=== PATIENT | female | born 1990 | race Two or more races ===

== ENCOUNTER 2017-03-12 10:10 | Inpatient (IN) | payer BC ==
[~2017-03-12] VITALS: Ht 167.6 cm; Wt 68.4 kg
--- NOTE | ~2017-03-12 | OR ---
PATIENT'S NAME: ANGELICA CUBA [facility] AGE: 26 Y [address] ROOM: [place] [id number] LOCATION: [facility] ADMIT DATE: 03/12/2017 OR/Procedure Report DISCHARGE DATE: FAMILY PHYSICIAN: PHYSICIAN, NO ATTENDING PHYSICIAN: SAGAR VELASQUEZ SURGEON: Sagar Velasquez MD FASHION BUYER: DATE OF PROCEDURE: 03/12/2017 PREOPERATIVE DIAGNOSIS: Intrauterine at 39 weeks 6 days. POSTOPERATIVE DIAGNOSIS: Intrauterine at 39 weeks 6 days, active labor. PROCEDURE PERFORMED: Spontaneous vaginal delivery over intact perineum. ANESTHESIA: Epidural. FINDINGS: Viable male infant with score of 8 and 9 and weight of 8 pounds 2 ounces. Placenta intact with 3-vessel cord. No cervical, vaginal, or perineal lacerations. COMPLICATIONS: None. ESTIMATED BLOOD LOSS: 250 mL. INDICATIONS: The patient is a 26-year-old G3, P2-0-0-2 with intrauterine at 39 weeks 0 days, who presented to clinic today with vaginal bleeding and contractions every 8 minutes. She was found to be 2 cm dilated. She desired induction of labor. She was sent over to Labor and Delivery, was found to be 4 cm dilated. AROM was attempted to be performed. Normal fluid returned. The patient then was started on Pitocin. She got her epidural and was found to be 6 cm and had spontaneous rupture of membranes. She then progressed to complete and started maternal expulsive efforts. DESCRIPTION OF PROCEDURE: The patient was placed in dorsal lithotomy. She was prepped and draped in the usual fashion. With maternal expulsive efforts, the head was delivered in the JENNIFER position followed by the remainder of the fetus. The new born was placed on the mother's abdomen. The cord was clamped and cut. The placenta then delivered spontaneously intact. Cord blood was obtained prior to this. The cervix, vagina, and perineum were inspected and no lacerations were noted. Instrument, sponge, and needle counts were correct at the conclusion of the case. DISPOSITION: Mom stable. Baby in room with mom. PATIENT'S NAME: ANGELICA CUBA [facility] AGE: 26 Y [address] ROOM: [place] [address] LOCATION: [facility] ADMIT DATE: 03/12/2017 OR/Procedure Report DISCHARGE DATE: FAMILY PHYSICIAN: EMILY MORROW ATTENDING PHYSICIAN: SAGAR VELASQUEZ MD LUZ MARIA BOBO/alicia /[id number] d: 03/13/17 0130 t: 03/20/17 1819, OPERATIVE SUMMARY
[~2017-03-12 10:10] MED LIST: LEVOTHROID (S150 MCG PO; PRENATAL 1+1)(P1 TAB PO
[2017-03-12 11:18] LABS: BASOPHIL % 0.2 %; EOSINOPHIL % 0.4 %; HEMATOCRIT 33.6 % (33.0-46.0); HEMOGLOBIN 11.2 g/dL (11.0-15.0); IMMATURE GRANULOCYTE # 0.1 K/uL (0.0-0.3); IMMATURE GRANULOCYTE % 0.5 %; LYMPHOCYTE # 1.9 K/uL (0.8-4.0); LYMPHOCYTE % 20.8 %; MCH 28.4 pg (27.0-34.0); MCHC 33.3 gm/dL (32.0-36.5); MCV 85.1 fl (83.0-98.0); MONOCYTE # 0.6 K/uL (0.0-1.0); MONOCYTE % 6.9 %; MPV 11.3 fl (9.4-12.4); NEUTROPHIL # (ANC) 6.6 K/uL (1.8-7.8); NEUTROPHIL % 71.2 %; NRBC % 0 /100WBC (0-0.00); PLATELET COUNT 169 K/uL (150-450); RBC 3.95 M/uL (3.50-5.00); WBC 9.3 K/uL (4.0-11.0)
[2017-03-13 04:26] LABS: BASOPHIL % 0.4 %; EOSINOPHIL # 0.1 K/uL (0.0-0.5); EOSINOPHIL % 0.8 %; HEMATOCRIT 30.7 % (33.0-46.0); HEMOGLOBIN 10.2 g/dL (11.0-15.0); IMMATURE GRANULOCYTE # 0.1 K/uL (0.0-0.3); IMMATURE GRANULOCYTE % 0.6 %; LYMPHOCYTE # 2.2 K/uL (0.8-4.0); LYMPHOCYTE % 24.4 %; MCH 27.9 pg (27.0-34.0); MCHC 33.2 gm/dL (32.0-36.5); MCV 84.1 fl (83.0-98.0); MONOCYTE # 0.7 K/uL (0.0-1.0); MONOCYTE % 7.8 %; MPV 10.9 fl (9.4-12.4); NRBC % 0 /100WBC (0-0.00); PLATELET COUNT 147 K/uL (150-450); RBC 3.65 M/uL (3.50-5.00); RDW-CV 13.2 % (11.9-14.6); WBC 9.1 K/uL (4.0-11.0)
--- NOTE | 2017-03-13 06:19 | NUR ---
VSS, fundus 1 down, firm, small flow, Motrin last at 1936, Perc last at 0004, Synthroid due at 0700
[2017-03-14] MEDS ORDERED: SURFAK240 MG PO (11:07)
[2017-03-14] MEDS ORDERED: MOTRIN800 MG PO (11:08)
[2017-03-14] MEDS ORDERED: PERCOCET 5-3251 EACH PO (11:09)
[2017-03-14] MEDS ORDERED: ANUSOL-HC25 MG R (11:13)
== END 2017-03-14 14:45 | disposition disaster alternative care site (69) | DRG 775 ==
LOC: GOBS 10:10 → GOBM 10:10 → GOBS 10:11 → GOBM 03-13 09:21 → GOBS 03-14 14:45
PROVIDERS: ADMIT Obstetrics & Gynecology
PROC: 10907ZC Drainage of Amniotic Fluid, Therapeutic from Products of Conception, Via Natural or Artificial Opening (ICD-10-PCS; principal; 2017-03-12)
PROC: 10E0XZZ Delivery of Products of Conception, External Approach (ICD-10-PCS; 2017-03-12)
DX: O42.02 Full-term premature rupture of membranes, onset of labor within 24 hours of rupture (principal); Z37.0 Single live birth; Z3A.39 39 weeks gestation of pregnancy
CPT/HCPCS: J2001; J2590; J3010; J7120